=== PATIENT | female | born 1945 | race Caucasian/White ===

== ENCOUNTER → 2016-10-26 | Outpatient (CLI) | payer MEDICARE | END | disposition home or self-care (01) | LOC: RAD.S 07:18 | DX: M54.6 Pain in thoracic spine (principal); S22.009A Unspecified fracture of unspecified thoracic vertebra, initial encounter for closed fracture; M54.2 Cervicalgia; R29.2 Abnormal reflex; R20.0 Anesthesia of skin; R20.2 Paresthesia of skin; W19.XXXA Unspecified fall, initial encounter ==

== ENCOUNTER 2016-11-07 08:20 | Day surgery (SDC) | payer MEDICARE ==
[~2016-11-07] VITALS: Ht 162.6 cm; Wt 55.9 kg
== END 2016-11-07 15:25 | disposition home or self-care (01) ==
LOC: RAD.S 08:20 → EDSTATUS 09:00 → SSS 09:30 → RAD.S 15:25
PROC: B02BY0Z Computerized Tomography (CT Scan) of Spinal Cord using Other Contrast, Unenhanced and Enhanced (ICD-10-PCS; principal; 2016-11-07)
DX: M47.812 Spondylosis without myelopathy or radiculopathy, cervical region (principal); Z88.1 Allergy status to other antibiotic agents; Z88.8 Allergy status to other drugs, medicaments and biological substances; Z79.899 Other long term (current) drug therapy